=== PATIENT | male | born 1975 | race Caucasian/White ===

== ENCOUNTER 2016-11-25 21:04 | Emergency (ER) | payer SELFPAY ==
[~2016-11-25] VITALS: Ht 182.9 cm; Wt 95.6 kg
[~2016-11-25 21:04] MED LIST: LORTAB5 PO; MICARDIS OR; MICARDIS40 MG OR; NAPROSYN500 MG OR; OMEPRAZOLE20 MG OR; PREVACID30 M1 OR
[2016-11-25] MEDS ORDERED: DIPROLENE AF0.05 % EX (22:09)
[2016-11-25] MEDS ORDERED: TRIAMCINOLON0.11 EX (22:09)
[2016-11-25 22:38] VITALS: BP 148/99
== END 2016-11-25 22:44 | disposition home or self-care (01) | DRG 596 ==
LOC: ED 21:04
DX: L40.9 Psoriasis, unspecified (principal); I10 Essential (primary) hypertension; K21.9 Gastro-esophageal reflux disease without esophagitis; I45.6 Pre-excitation syndrome; F17.210 Nicotine dependence, cigarettes, uncomplicated

== ENCOUNTER 2017-09-04 11:22 | Emergency (ER) | payer SELFPAY ==
[~2017-09-04] VITALS: Ht 182.9 cm; Wt 90.9 kg
[~2017-09-04 11:22] MED LIST changes: +DIPROLENE AF0.05 % EX; +TRIAMCINOLON0.11 EX
[2017-09-04 11:50] LABS: HEMATOCRIT 51.1 % (39.0-50.0); HEMOGLOBIN 17.8 g/dl (14.0-18.0); IMMATURE GRANULOCYTES 0.4 % (0.0-1.0); MEAN CELL VOLUME 91.4 fL CALC (80.0-100.0); MEAN CORPUSCULAR HGB 31.8 pG CALC (26.0-32.0); MEAN CORPUSCULAR HGB CONC 34.8 g/L CALC (32.0-36.0); NEUT# 5.09 thou/uL (1.82-7.42); RED BLOOD COUNT 5.59 mill/uL (4.70-6.10); RED CELL DISTRI WIDTH 12.3 % (11.5-15.5)
[2017-09-04 12:18] LABS: ALBUMIN 4.7 g/dL (3.2-5.0); ALKALINE PHOSPHATASE 95 u/l (38-126); ANION GAP 13 (6-22 (CALC)); BILIRUBIN, TOTAL 0.7 mg/dL (0.0-1.4); BUN 6 mg/dL (9-20); BUN/CREATININE RATIO 9 (12-20 (CALC)); CARBON DIOXIDE 25 mmol/l (22-30); CHLORIDE 106 mmol/l (95-108); CREATININE 0.6 mg/dL (0.7-1.3); GFR > 60 ML/MIN (>=60 (CALC)); GFR FOR AFR.AMER. > 60 ML/MIN (>=60 (CALC)); POTASSIUM 3.8 mmol/l (3.5-5.1); SGPT/ALT 53 u/l (21-72); SODIUM 139 mmol/l (137-146); TOTAL PROTEIN 8.9 g/dL (6.3-8.2)
[2017-09-04 12:21] LABS: SGOT/AST 74 u/l (17-59)
[2017-09-04 12:30] LABS: MYOGLOBIN 30 ng/mL (0 - 121)
[2017-09-04] MEDS ORDERED: ASPIRIN 81 LOW81 MG PO (14:55)
[2017-09-04] MEDS ORDERED: NAPROXEN DR500 MG PO (14:55)
[2017-09-04 15:02] VITALS: BP 153/83
== END 2017-09-04 15:08 | disposition home or self-care (01) | DRG 313 ==
LOC: ED 11:22
PROVIDERS: Emergency Medicine
DX: R07.9 Chest pain, unspecified (principal); M54.9 Dorsalgia, unspecified; I10 Essential (primary) hypertension; I45.6 Pre-excitation syndrome; F17.210 Nicotine dependence, cigarettes, uncomplicated
CPT/HCPCS: Q9967

== ENCOUNTER 2020-06-07 | Emergency (ER) | payer OTHER ==
[~2020-06-07] MED LIST changes: +ASPIRIN 81 LOW81 MG PO; +NAPROXEN DR500 MG PO
[2020-06-07 11:33] LABS: HEMATOCRIT 50.5 % (39.0-50.0); HEMOGLOBIN 17.2 g/dl (14.0-18.0); IMMATURE GRANULOCYTES 0.6 % (0.0-5.0); MEAN CELL VOLUME 93.2 fL CALC (80.0-100.0); MEAN CORPUSCULAR HGB 31.7 pG CALC (26.0-32.0); MEAN CORPUSCULAR HGB CONC 34.1 g/dL CAL (32.0-36.0); NEUT# 2.95 thou/uL (1.82-7.42); RED BLOOD COUNT 5.42 mill/uL (4.70-6.10); RED CELL DISTRI WIDTH 12.8 % (11.5-15.5)
[2020-06-07 11:45] LABS: ALBUMIN 4.9 g/dL (3.2-5.0); ALKALINE PHOSPHATASE 76 u/l (38-126); ANION GAP 13 (6-22 (CALC)); BILIRUBIN, TOTAL 0.7 mg/dL (0.0-1.4); BUN 4 mg/dL (9-20); BUN/CREATININE RATIO 7 (12-20 (CALC)); CARBON DIOXIDE 23 mmol/l (22-30); CHLORIDE 104 mmol/l (95-108); CREATININE 0.6 mg/dL (0.7-1.3); ETHYL ALCOHOL 0 mg/dl (0-30); GFR > 60 ML/MIN (>=60 (CALC)); GFR FOR AFR.AMER. > 60 ML/MIN (>=60 (CALC)); POTASSIUM 4.1 mmol/l (3.5-5.1); SGOT/AST 93 u/l (17-59); SODIUM 137 mmol/l (137-146)
[2020-06-07 11:48] LABS: PROTHROMBIN TIME 9.9 SECONDS (9.0-12.5)
[2020-06-07 12:30] LABS: URINE BILIRUBIN - DIPSTICK NEGATIVE (NEGATIVE); URINE BLOOD DIPSTICK NEGATIVE (NEGATIVE); URINE COLOR YELLOW; URINE GLUCOSE - DIPSTICK NEGATIVE (NEGATIVE); URINE KETONE NEGATIVE (NEGATIVE); URINE LEUK ESTERASE NEGATIVE (NEGATIVE); URINE PROTEIN - DIPSTICK NEGATIVE (NEG-TRACE); URINE UROBILINOGEN - DIPSTICK 0.2 E.U./dL (0.2)
[2020-06-07 12:33] LABS: URINE NITRITE - DIPSTICK NEGATIVE (Negative)
[2020-06-07] MEDS ORDERED: LOPRESSOR50 M2 PO (13:11)
[2020-06-07] MEDS ORDERED: XANAX0.25 MG PO (13:18)
[2020-06-07] MEDS ORDERED: GENTAMICIN SULF5 ML OS (13:18)
== END 2020-06-07 13:38 | disposition home or self-care (01) | DRG 151 ==
PROVIDERS: Emergency Medicine
DX: R04.0 Epistaxis (principal); I10 Essential (primary) hypertension; H00.014 Hordeolum externum left upper eyelid; F41.9 Anxiety disorder, unspecified; I45.6 Pre-excitation syndrome; T46.5X6A Underdosing of other antihypertensive drugs, initial encounter; F17.210 Nicotine dependence, cigarettes, uncomplicated; Z91.128 Patient's intentional underdosing of medication regimen for other reason

== ENCOUNTER 2021-10-22 16:07 | Inpatient (IN) | payer OTHER ==
[2021-10-22] VITALS (31 sets, daily range): BP systolic 130–185; BP diastolic 77–116
[~2021-10-22] VITALS: Ht 185.4 cm; Wt 90.9 kg
[~2021-10-22 16:07] MED LIST changes: +GENTAMICIN SULF5 ML OS; +LOPRESSOR50 M2 PO; +XANAX0.25 MG PO
[2021-10-22] MEDS ORDERED: PROZAC20 MG PO (16:28)
[2021-10-22] MEDS ORDERED: XANAX0.25 MG PO (16:29)
[2021-10-22 16:55] LABS: HEMATOCRIT 46.5 % (39.0-50.0); HEMOGLOBIN 16.3 g/dl (14.0-18.0); IMMATURE GRANULOCYTES 0.4 % (0.0-5.0); MEAN CELL VOLUME 91.7 fL CALC (80.0-100.0); MEAN CORPUSCULAR HGB 32.1 pG CALC (26.0-32.0); MEAN CORPUSCULAR HGB CONC 35.1 g/dL CAL (32.0-36.0); NEUT# 4.57 thou/uL (1.82-7.42); RED BLOOD COUNT 5.07 mill/uL (4.70-6.10); RED CELL DISTRI WIDTH 12.7 % (11.5-15.5)
[2021-10-22 17:17] LABS: ALKALINE PHOSPHATASE 111 u/l (38-126); BUN 7 mg/dL (9-20); BUN/CREATININE RATIO 14 (12-20 (CALC)); CARBON DIOXIDE 24 mmol/l (22-30); CHLORIDE 93 mmol/l (95-108); CREATININE 0.5 mg/dL (0.7-1.3); GFR FOR AFR.AMER. > 60 ML/MIN (>=60 (CALC)); GFR OTHER RACES > 60 ML/MIN (>=60 (CALC)); POTASSIUM 3.7 mmol/l (3.5-5.1); SGOT/AST 132 u/l (17-59); TOTAL PROTEIN 8.6 g/dL (6.3-8.2)
[2021-10-22 17:20] LABS: ALBUMIN 3.9 g/dL (3.2-5.0); ANION GAP 17 (6-22 (CALC)); BILIRUBIN, TOTAL 0.4 mg/dL (0.0-1.4); SODIUM 130 mmol/l (137-146)
[2021-10-22 23:23] LABS: URINE BILIRUBIN - DIPSTICK NEGATIVE (NEGATIVE); URINE BLOOD DIPSTICK TRACE-INTACT (NEGATIVE); URINE CLARITY CLEAR; URINE COLOR YELLOW; URINE GLUCOSE - DIPSTICK NEGATIVE (NEGATIVE); URINE KETONE NEGATIVE (NEGATIVE); URINE LEUK ESTERASE NEGATIVE (Negative); URINE NITRITE - DIPSTICK NEGATIVE (Negative); URINE PROTEIN - DIPSTICK NEGATIVE (NEG-TRACE); URINE SPECIFIC GRAVITY <=1.005; URINE UROBILINOGEN - DIPSTICK 0.2 E.U./dL (0.2)
[2021-10-23] VITALS (25 sets, daily range): BP systolic 114–178; BP diastolic 78–115
[2021-10-23 05:36] LABS: HEMATOCRIT 46.3 % (39.0-50.0); HEMOGLOBIN 16.3 g/dl (14.0-18.0); IMMATURE GRANULOCYTES 0.4 % (0.0-5.0); MEAN CELL VOLUME 91.7 fL CALC (80.0-100.0); MEAN CORPUSCULAR HGB 32.3 pG CALC (26.0-32.0); MEAN CORPUSCULAR HGB CONC 35.2 g/dL CAL (32.0-36.0); NEUT# 4.44 thou/uL (1.82-7.42); RED BLOOD COUNT 5.05 mill/uL (4.70-6.10); RED CELL DISTRI WIDTH 12.7 % (11.5-15.5)
[2021-10-23 05:44] LABS: ALBUMIN 3.9 g/dL (3.2-5.0); ALKALINE PHOSPHATASE 111 u/l (38-126); AMYLASE 88 u/l (30-110); ANION GAP 18 (6-22 (CALC)); BUN 5 mg/dL (9-20); BUN/CREATININE RATIO 10 (12-20 (CALC)); CARBON DIOXIDE 20 mmol/l (22-30); CHLORIDE 100 mmol/l (95-108); CREATININE 0.4 mg/dL (0.7-1.3); GFR FOR AFR.AMER. > 60 ML/MIN (>=60 (CALC)); GFR OTHER RACES > 60 ML/MIN (>=60 (CALC)); LIPASE 612 u/l (23-300); POTASSIUM 3.9 mmol/l (3.5-5.1); SGOT/AST 136 u/l (17-59); SODIUM 134 mmol/l (137-146); TOTAL PROTEIN 8.2 g/dL (6.3-8.2)
[2021-10-23 05:46] LABS: BILIRUBIN, TOTAL 0.6 mg/dL (0.0-1.4)
[2021-10-23] MEDS ORDERED: ALBUTEROL108 MCG/AC IN (11:20)
[2021-10-23] MEDS ORDERED: LOPRESSOR50 M1 PO (12:03)
[2021-10-24] VITALS (17 sets, daily range): BP systolic 35–156; BP diastolic 10–113
[2021-10-24 06:18] LABS: HEMATOCRIT 48.4 % (39.0-50.0); HEMOGLOBIN 16.6 g/dl (14.0-18.0); MEAN CELL VOLUME 93.6 fL CALC (80.0-100.0); MEAN CORPUSCULAR HGB 32.1 pG CALC (26.0-32.0); MEAN CORPUSCULAR HGB CONC 34.3 g/dL CAL (32.0-36.0); RED BLOOD COUNT 5.17 mill/uL (4.70-6.10); RED CELL DISTRI WIDTH 12.9 % (11.5-15.5)
[2021-10-24 06:53] LABS: ALBUMIN 3.8 g/dL (3.2-5.0); ALKALINE PHOSPHATASE 94 u/l (38-126); ANION GAP 14 (6-22 (CALC)); BILIRUBIN, TOTAL 1.1 mg/dL (0.0-1.4); BUN 12 mg/dL (9-20); BUN/CREATININE RATIO 22 (12-20 (CALC)); CARBON DIOXIDE 24 mmol/l (22-30); CHLORIDE 102 mmol/l (95-108); CREATININE 0.5 mg/dL (0.7-1.3); GFR FOR AFR.AMER. > 60 ML/MIN (>=60 (CALC)); GFR OTHER RACES > 60 ML/MIN (>=60 (CALC)); MAGNESIUM 1.8 mg/dL (1.6-2.3); POTASSIUM 3.7 mmol/l (3.5-5.1); SGOT/AST 101 u/l (17-59); SODIUM 136 mmol/l (137-146); TOTAL PROTEIN 7.6 g/dL (6.3-8.2)
[2021-10-25] VITALS (40 sets, daily range): BP systolic 75–121; BP diastolic 51–84
[2021-10-25 04:00] LABS: HEMATOCRIT 47.1 % (39.0-50.0); HEMOGLOBIN 15.9 g/dl (14.0-18.0); MEAN CELL VOLUME 95.5 fL CALC (80.0-100.0); MEAN CORPUSCULAR HGB 32.3 pG CALC (26.0-32.0); MEAN CORPUSCULAR HGB CONC 33.8 g/dL CAL (32.0-36.0); RED BLOOD COUNT 4.93 mill/uL (4.70-6.10); RED CELL DISTRI WIDTH 12.9 % (11.5-15.5)
[2021-10-25 04:22] LABS: ALBUMIN 3.9 g/dL (3.2-5.0); ALKALINE PHOSPHATASE 84 u/l (38-126); ANION GAP 15 (6-22 (CALC)); BILIRUBIN, TOTAL 1.4 mg/dL (0.0-1.4); BUN 19 mg/dL (9-20); BUN/CREATININE RATIO 27 (12-20 (CALC)); CARBON DIOXIDE 26 mmol/l (22-30); CHLORIDE 101 mmol/l (95-108); CREATININE 0.7 mg/dL (0.7-1.3); GFR FOR AFR.AMER. > 60 ML/MIN (>=60 (CALC)); GFR OTHER RACES > 60 ML/MIN (>=60 (CALC)); MAGNESIUM 1.9 mg/dL (1.6-2.3); POTASSIUM 3.5 mmol/l (3.5-5.1); SGOT/AST 95 u/l (17-59); SODIUM 138 mmol/l (137-146)
[2021-10-26] VITALS (28 sets, daily range): BP systolic 92–133; BP diastolic 63–87
[2021-10-26 05:44] LABS: HEMATOCRIT 45.3 % (39.0-50.0); HEMOGLOBIN 15.3 g/dl (14.0-18.0); MEAN CELL VOLUME 96.6 fL CALC (80.0-100.0); MEAN CORPUSCULAR HGB 32.6 pG CALC (26.0-32.0); MEAN CORPUSCULAR HGB CONC 33.8 g/dL CAL (32.0-36.0); RED BLOOD COUNT 4.69 mill/uL (4.70-6.10); RED CELL DISTRI WIDTH 12.8 % (11.5-15.5)
[2021-10-26 06:12] LABS: ALBUMIN 3.3 g/dL (3.2-5.0); ALKALINE PHOSPHATASE 75 u/l (38-126); ANION GAP 11 (6-22 (CALC)); BUN 20 mg/dL (9-20); BUN/CREATININE RATIO 23 (12-20 (CALC)); CARBON DIOXIDE 28 mmol/l (22-30); CHLORIDE 101 mmol/l (95-108); CREATININE 0.9 mg/dL (0.7-1.3); GFR FOR AFR.AMER. > 60 ML/MIN (>=60 (CALC)); GFR OTHER RACES > 60 ML/MIN (>=60 (CALC)); POTASSIUM 3.4 mmol/l (3.5-5.1); SGOT/AST 86 u/l (17-59); SODIUM 137 mmol/l (137-146); TOTAL PROTEIN 6.8 g/dL (6.3-8.2)
[2021-10-27] VITALS (7 sets, daily range): BP systolic 92–124; BP diastolic 55–81
[2021-10-27 05:40] LABS: HEMATOCRIT 42.8 % (39.0-50.0); HEMOGLOBIN 14.7 g/dl (14.0-18.0); MEAN CELL VOLUME 96.2 fL CALC (80.0-100.0); MEAN CORPUSCULAR HGB CONC 34.3 g/dL CAL (32.0-36.0); RED BLOOD COUNT 4.45 mill/uL (4.70-6.10); RED CELL DISTRI WIDTH 12.9 % (11.5-15.5)
[2021-10-27 06:14] LABS: ANION GAP 12 (6-22 (CALC)); BUN 16 mg/dL (9-20); BUN/CREATININE RATIO 21 (12-20 (CALC)); CARBON DIOXIDE 26 mmol/l (22-30); CHLORIDE 102 mmol/l (95-108); CREATININE 0.8 mg/dL (0.7-1.3); GFR FOR AFR.AMER. > 60 ML/MIN (>=60 (CALC)); GFR OTHER RACES > 60 ML/MIN (>=60 (CALC)); POTASSIUM 3.1 mmol/l (3.5-5.1); SODIUM 136 mmol/l (137-146)
[2021-10-28 00:10] VITALS: BP 105/72
[2021-10-28 04:27] VITALS: BP 108/73
[2021-10-28 06:25] LABS: ALBUMIN 3.1 g/dL (3.2-5.0); ALKALINE PHOSPHATASE 67 u/l (38-126); ANION GAP 10 (6-22 (CALC)); BUN 11 mg/dL (9-20); BUN/CREATININE RATIO 17 (12-20 (CALC)); CARBON DIOXIDE 25 mmol/l (22-30); CHLORIDE 105 mmol/l (95-108); CREATININE 0.6 mg/dL (0.7-1.3); GFR FOR AFR.AMER. > 60 ML/MIN (>=60 (CALC)); GFR OTHER RACES > 60 ML/MIN (>=60 (CALC)); POTASSIUM 3.4 mmol/l (3.5-5.1); SGOT/AST 88 u/l (17-59); SODIUM 136 mmol/l (137-146); TOTAL PROTEIN 6.4 g/dL (6.3-8.2)
[2021-10-28 06:31] LABS: BILIRUBIN, TOTAL 0.4 mg/dL (0.0-1.4)
[2021-10-28 06:46] VITALS: BP 111/70
[2021-10-28 09:39] VITALS: BP 99/75
[2021-10-28 11:00] VITALS: BP 90/67
[2021-10-28] MEDS ORDERED: CHLORDIAZEPOXID25 M1 PO (12:43)
[2021-10-28] MEDS ORDERED: FOLIC ACID1 M1 PO (12:43)
[2021-10-28] MEDS ORDERED: PREDNISONE10 MG PO (12:43)
[2021-10-28] MEDS ORDERED: VITAMIN B-1100 M1 PO (12:43)
[2021-10-28] MEDS ORDERED: PANTOPRAZOLE SO40 M1 PO (12:43)
[2021-10-28] MEDS ORDERED: LORTAB5 PO (12:47)
== END 2021-10-28 15:08 | disposition home health service (06) | DRG 897 ==
LOC: ED 16:07 → ED-I 16:46 → ED 16:46 → ED-I 20:00 → ED 20:18 → ICU 20:18 → MS2 10-26 16:22
PROVIDERS: Internal Medicine; ADMIT Internal Medicine; ATTEND Internal Medicine
DX: F10.231 Alcohol dependence with withdrawal delirium (principal); J44.1 Chronic obstructive pulmonary disease with (acute) exacerbation; I10 Essential (primary) hypertension; I45.6 Pre-excitation syndrome; F17.200 Nicotine dependence, unspecified, uncomplicated; Z86.16 Personal history of COVID-19; Z20.822 Contact with and (suspected) exposure to COVID-19
CPT/HCPCS: J1650; J2060; Q9967

== ENCOUNTER 2022-03-08 00:23 | Emergency (ER) | payer OTHER ==
[~2022-03-08] VITALS: Ht 185.4 cm; Wt 93.0 kg
[~2022-03-08 00:23] MED LIST changes: +ALBUTEROL108 MCG/AC IN; +CHLORDIAZEPOXID25 M1 PO; +FOLIC ACID1 M1 PO; +LOPRESSOR50 M1 PO; +PANTOPRAZOLE SO40 M1 PO; +PREDNISONE10 MG PO; +PROZAC20 MG PO; +VITAMIN B-1100 M1 PO
[2022-03-08 02:17] VITALS: BP 129/86
[2022-03-08] MEDS ORDERED: POT CHLORIDE10 ME5 PO (02:28)
[2022-03-08 02:31] VITALS: BP 176/100
[2022-03-08 02:45] VITALS: BP 150/90
[2022-03-08 03:01] VITALS: BP 163/94
[2022-03-08 03:07] VITALS: BP 163/94
[2022-03-08] MEDS ORDERED: AMOXICILLIN500 MG PO (23:54)
[2022-03-08] MEDS ORDERED: TRAMADOL HCL50 MG PO (23:54)
== END 2022-03-08 03:10 | disposition home or self-care (01) | DRG 151 ==
LOC: ED 00:23
DX: R04.0 Epistaxis (principal)

== ENCOUNTER 2022-03-08 22:38 | Emergency (ER) | payer OTHER ==
[~2022-03-08] VITALS: Ht 182.9 cm; Wt 93.0 kg
[~2022-03-08 22:38] MED LIST changes: +POT CHLORIDE10 ME5 PO
[2022-03-08 22:45] VITALS: BP 154/86
[2022-03-08 23:01] VITALS: BP 162/87
[2022-03-08 23:34] LABS: BASO% 0.6 % (0-3); HEMATOCRIT 49.5 % (39.0-50.0); HEMOGLOBIN 17.4 g/dl (14.0-18.0); IMMATURE GRANULOCYTES 0.4 % (0.0-5.0); LYMPH% 36.5 % (15-41); MEAN CELL VOLUME 91.5 fL CALC (80.0-100.0); MEAN CORPUSCULAR HGB 32.2 pG CALC (26.0-32.0); MEAN CORPUSCULAR HGB CONC 35.2 g/dL CAL (32.0-36.0); MONO% 10.7 % (2-13); NEUT# 3.5 thou/uL (1.82-7.42); NEUT% 50.8 % (42-76); RED BLOOD COUNT 5.41 mill/uL (4.70-6.10); RED CELL DISTRI WIDTH 12.8 % (11.5-15.5)
[2022-03-08] MEDS ORDERED: TRAMADOL HCL50 MG PO (23:54)
[2022-03-08] MEDS ORDERED: AMOXICILLIN500 MG PO (23:54)
[2022-03-09 00:12] VITALS: BP 156/70
[2022-03-10] MEDS ORDERED: GABAPENTIN100 MG PO (17:32)
[2022-03-10] MEDS ORDERED: TRAMADOL HYDROC50 M1 PO (19:58)
== END 2022-03-09 01:05 | disposition home or self-care (01) | DRG 151 ==
LOC: ED 22:38
PROVIDERS: Family Medicine
DX: R04.0 Epistaxis (principal)

== ENCOUNTER 2022-03-10 16:58 | Emergency (ER) | payer SELFPAY ==
[2022-03-10] VITALS (13 sets, daily range): BP systolic 128–144; BP diastolic 85–95
[~2022-03-10] VITALS: Ht 182.9 cm; Wt 93.2 kg
[~2022-03-10 16:58] MED LIST changes: +AMOXICILLIN500 MG PO; +TRAMADOL HCL50 MG PO
[2022-03-10] MEDS ORDERED: GABAPENTIN100 MG PO (17:32)
[2022-03-10] MEDS ORDERED: TRAMADOL HYDROC50 M1 PO (19:58)
== END 2022-03-10 20:15 | disposition home or self-care (01) | DRG 151 ==
LOC: ED 16:58
DX: R04.0 Epistaxis (principal); I10 Essential (primary) hypertension